=== PATIENT | female | born 1965 | race African-American/Black ===

== ENCOUNTER 2016-04-27 14:41 | Emergency (ER) | payer SELFPAY ==
[~2016-04-27] VITALS: Ht 162.6 cm; Wt 80.0 kg
[2016-04-27 14:43] VITALS: BP 218/107; PULSE 75; RESP 14; TEMP 98.2; O2SAT 98
[2016-04-27 14:48] VITALS: BP 217/112; PULSE 90; RESP 18; TEMP 98.7; O2SAT 99
[2016-04-27] MEDS ORDERED: LISI10TA3 PO ×2 (14:51→15:31)
--- NOTE | 2016-04-27 14:56 | PD ---
HPI Chief Complaint: Hypertension Time Seen by Provider: 14:48 Travel History International Travel<30 days: No Contact w/Intl Traveler<30days: No Traveled to known affect area: No History of Present Illness HPI The patient was seen and examined in the presence of the nurse. This patient complains of elevated blood pressure. She usually takes daily lisinopril but ran out 2 days ago. She recently moved here from [place] and has no physician or medication. Blood pressure is 217 systolic. Denies any chest pain or vision change or significant headache. Severity is mild. No alleviating factors. PFSH Past Medical History Cardiovascular Problems: Yes Social History Alcohol Use: No Tobacco Use: No Substance Use: No Allergies-Medications (Allergen,Severity, Reaction): Coded Allergies: No Known Allergies (Unverified , 04/27/16) Reported Meds & Prescriptions Reported Meds & Active Scripts Active Lisinopril 10 Mg Tab 10 Mg PO DAILY Review of Systems General / Constitutional: No: Fever Eyes: No: Visual changes HENT: No: Headaches Cardiovascular: No: Chest Pain or Discomfort Respiratory: No: Shortness of Breath Gastrointestinal: No: Abdominal Pain Genitourinary: No: Dysuria Musculoskeletal: No: Pain Skin: No Rash Neurologic: No: Weakness Psychiatric: No: Depression Endocrine: No: Polydipsia Hematologic/Lymphatic: No: Easy Bruising Physical Exam Narrative GENERAL: Well-nourished, well-developed patient in no apparent distress. SKIN: Warm and dry. HEAD: Atraumatic. Normocephalic. EYES: Pupils equal and round. No scleral icterus. No injection or drainage. ENT: No nasal bleeding or discharge. Mucous membranes pink and moist. NECK: Trachea midline. No JVD. CARDIOVASCULAR: Regular rate and rhythm. No murmur appreciated. RESPIRATORY: No accessory muscle use. Clear to auscultation. Breath sounds equal bilaterally. GASTROINTESTINAL: Abdomen soft, non-tender, nondistended. Hepatic and splenic margins not palpable. MUSCULOSKELETAL: No obvious deformities. No clubbing. No cyanosis. No edema. NEUROLOGICAL: Awake and alert. No obvious cranial nerve deficits. Motor grossly within normal limits. Normal speech. PSYCHIATRIC: Appropriate mood and affect; insight and judgment normal. Data Data Last Documented VS Vital Signs Date Time Temp Pulse Resp B/P Pulse Ox O2 Delivery O2 Flow Rate FiO2 04/27/16 15:52 80 18 142/94 99 Room Air 04/27/16 14:48 98.7 Orders Clonidine (Catapres) (04/27/16 15:00) MDM Medical Decision Making Medical Screen Exam Complete: Yes Emergency Medical Condition: Yes Medical Record Reviewed: Yes Differential Diagnosis Hypertensive urgency, accelerated hypertension, noncompliance Narrative Course I have reviewed the patient's electronic medical record. Blood pressure is 217 systolic. She is neurologically intact. No indication for imaging at this time. I gave her dose of clonidine Will reassess. Blood pressure this time 147 systolic Have refilled her lisinopril for one month The patient was advised to follow up with their physician and return if they worsen. Check and record blood pressure daily Diagnosis Primary Impression: Accelerated hypertension Additional Instructions: Check and record blood pressure daily The patient was advised to follow up with their physician and return if they worsen. Med/Other Pt SpecificInfo: Prescription(s) given Scripts Lisinopril 10 Mg Tab10 Mg PO DAILY #30 TAB Ref 0 Prov:Baltazar Rosales MD 04/27/16 Disposition: 01 DISCHARGE HOME Condition: Stable Baltazar Rosales MD Apr 27, 2016 14:56
[2016-04-27] MEDS ORDERED: cloNIDine HCL 0.2 MG TAB PO ONE (15:00)
[2016-04-27 15:17] VITALS: BP_SYST 164; BP_SYST 189; BP_DIAS 103; PULSE 78; RESP 18; O2SAT 99
[2016-04-27 15:52] VITALS: BP 142/94; PULSE 80; RESP 18; O2SAT 99
== END 2016-04-27 16:23 | disposition home or self-care (01) ==
LOC: NEPC 14:41
DX: I10 Essential (primary) hypertension (principal)
CPT/HCPCS: 99283

== ENCOUNTER 2016-10-28 09:54 | Observation (INO) | payer SELFPAY ==
[~2016-10-28] VITALS: Ht 154.9 cm; Wt 71.0 kg
[~2016-10-28 09:54] MED LIST: LISI10TA3 PO
[2016-10-28 09:55] VITALS: BP 194/109; PULSE 72; RESP 16; TEMP 98.6; O2SAT 100
[2016-10-28 10:09] VITALS: BP 171/92; PULSE 71; RESP 14; TEMP 98.9; O2SAT 99
[2016-10-28] MEDS ORDERED: SODIUM CHLORIDE 0.9% FLUSH 10 ML FLUSH IVF PRN (10:30)
[2016-10-28 10:41] VITALS: O2SAT 98
--- NOTE | 2016-10-28 10:45 | PD ---
HPI Chief Complaint: Hypertension Time Seen by Provider: 10:28 Travel History International Travel<30 days: No Contact w/Intl Traveler<30days: No Traveled to known affect area: No History of Present Illness HPI 51-year-old female states she has been out of her lisinopril for a week because of insurance reasons. She states yesterday she developed chest pressure which is now resolved. She states she is also been having intermittent headaches but denies any currently. She states she has not taken an aspirin yet today. She denies any prior cardiac workup or issues. She denies any other concurrent complaints. Quality is elevated. Severity is severe per patient. She states she is working on getting a job to get insurance but does not know when this will happen. She states she has not been on other medication for her blood pressure besides lisinopril. PFSH Past Medical History Cardiovascular Problems: Yes (HTN) Hypertension: Yes ?: Not Menopausal: Yes Past Surgical History Section: Yes (x2) Gynecologic Surgery: Yes () Social History Alcohol Use: No Tobacco Use: No Substance Use: No Allergies-Medications (Allergen,Severity, Reaction): Coded Allergies: No Known Allergies (Unverified , 10/28/16) Reported Meds & Prescriptions Reported Meds & Active Scripts Active Lisinopril 10 Mg Tab 10 Mg PO DAILY Review of Systems Except as stated in HPI: all other systems reviewed are Neg Physical Exam Narrative GENERAL: Well-nourished, well-developed patient. SKIN: Warm and dry. HEAD: Normocephalic and atraumatic. EYES: No injection or drainage. ENT: No nasal drainage noted. NECK: Supple, trachea midline. CARDIOVASCULAR: Regular rate and rhythm RESPIRATORY: Breath sounds equal bilaterally. No accessory muscle use. GASTROINTESTINAL: Abdomen soft, non-tender, nondistended. EXTREMITIES: No edema. NEUROLOGICAL: Awake and alert. Motor and sensory grossly within normal limits. Normal speech. Data Data Last Documented VS Vital Signs Date Time Temp Pulse Resp B/P Pulse Ox O2 Delivery O2 Flow Rate FiO2 10/28/16 10:47 171/92 10/28/16 10:41 98 Room Air 10/28/16 10:09 98.9 71 14 Orders Electrocardiogram (10/28/16 10:20) Ckmb (Isoenzyme) Profile (10/28/16 10:20) Complete Blood Count With Diff (10/28/16 10:20) Comprehensive Metabolic Panel (10/28/16 10:20) Magnesium (Mg) (10/28/16 10:20) Prothrombin Time / Inr (Pt) (10/28/16 10:20) Act Partial Throm Time (Ptt) (10/28/16 10:20) Troponin I (10/28/16 10:20) Chest, Single Ap (10/28/16 10:20) Ecg Monitoring (10/28/16 10:20) Bilateral Bp Monitoring (10/28/16 10:20) Iv Access Insert/Monitor (10/28/16 10:20) Oximetry (10/28/16 10:20) Sodium Chloride 0.9% Flush (Ns Flush) (10/28/16 10:30) Ct Brain W/O Iv Contrast(Rout) (10/28/16 ) Aspirin (Aspirin) (10/28/16 12:00) Admit Order (Ed Use Only) (10/28/16 11:55) Labs Laboratory Tests Test 10/28/16 10/28/16 10:30 10:38 White Blood Count 4.0 TH/MM3 Red Blood Count 4.98 MIL/MM3 Hemoglobin 13.3 GM/DL Hematocrit 39.4 % Mean Corpuscular Volume 79.1 FL Mean Corpuscular Hemoglobin 26.7 PG Mean Corpuscular Hemoglobin 33.7 % Concent Red Cell Distribution Width 13.6 % Platelet Count 232 TH/MM3 Mean Platelet Volume 8.4 FL Neutrophils (%) (Auto) 29.2 % Lymphocytes (%) (Auto) 52.2 % Monocytes (%) (Auto) 7.6 % Eosinophils (%) (Auto) 10.2 % Basophils (%) (Auto) 0.8 % Neutrophils # (Auto) 1.2 TH/MM3 Lymphocytes # (Auto) 2.1 TH/MM3 Monocytes # (Auto) 0.3 TH/MM3 Eosinophils # (Auto) 0.4 TH/MM3 Basophils # (Auto) 0.0 TH/MM3 CBC Comment DIFF FINAL Differential Comment Prothrombin Time 11.4 SEC Prothromb Time International 1.0 RATIO Ratio Activated Partial 27.3 SEC Thromboplast Time Sodium Level 140 MEQ/L Potassium Level 3.6 MEQ/L Chloride Level 106 MEQ/L Carbon Dioxide Level 27.7 MEQ/L Anion Gap 6 MEQ/L Blood Urea Nitrogen 10 MG/DL Creatinine 0.62 MG/DL Estimat Glomerular Filtration 124 ML/MIN Rate Random Glucose 91 MG/DL Calcium Level 9.0 MG/DL Magnesium Level 2.2 MG/DL Total Bilirubin 0.6 MG/DL Aspartate Amino Transf 23 U/L (AST/SGOT) Alanine Aminotransferase 20 U/L (ALT/SGPT) Alkaline Phosphatase 97 U/L Total Creatine Kinase 91 U/L Troponin I 0.02 NG/ML Total Protein 8.2 GM/DL Albumin 3.7 GM/DL MDM Medical Decision Making Medical Screen Exam Complete: Yes Emergency Medical Condition: Yes Medical Record Reviewed: Yes (pmh confirmed) Interpretation(s) EKG shows NSR, no ST elevation or depression, and no arrhythmias. No significant T-wave inversions. CBC & BMP Diagram 10/28/16 10:30 10/28/16 10:38 Last 24 hours Impressions Chest X-Ray 10/28/16 1020 Signed Impressions: Service Date/Time: Friday, October 28, 2016 10:32 - CONCLUSION: Normal examination. Edison Rodas MD Head CT 10/28/16 0000 Signed Impressions: Service Date/Time: Friday, October 28, 2016 11:27 - CONCLUSION: No acute intracranial disease. Timothy Mix MD Differential Diagnosis LA, hypertensive urgency, tension, migraine, bili Narrative Course Will check blood work, chest x-ray, EKG, CT brain and monitor ed workup no acute, agrees to records management specialist observation, given aspirin Diagnosis Primary Impression: Chest pain Qualified Code: R07.9 - Chest pain, unspecified type Admitting Information Admitting Physician Requests: Observation Ashtyn Cruz MD Oct 28, 2016 10:45
[2016-10-28 10:47] VITALS: BP_SYST 166; BP_SYST 171; BP_DIAS 87; BP_DIAS 92
[2016-10-28 10:54] LABS: AUTOMATED NEUTROPHIL # 1.2 TH/MM3 (1.8-7.7); BASOPHIL % 0.8 % (0.0-2.0); EOSINOPHIL # 0.4 TH/MM3 (0-0.4); EOSINOPHIL % 10.2 % (0.0-4.0); HEMATOCRIT 39.4 % (35.0-46.0); HEMO FLAGS DIFF FINAL; LYMPH % 52.2 % (9.0-44.0); LYMPHOCYTE # 2.1 TH/MM3 (1.0-4.8); MEAN CELL VOLUME 79.1 FL (80.0-100.0); MEAN CORPUSCULAR HEMOGLOBIN 26.7 PG (27.0-34.0); MEAN CORPUSCULAR HGB CONC 33.7 % (32.0-36.0); MONO % 7.6 % (0.0-8.0); NEUT % 29.2 % (16.0-70.0); PLATELET COUNT 232 TH/MM3 (150-450); RED BLOOD COUNT 4.98 MIL/MM3 (4.00-5.30); RED CELL DISTRIBUTION WIDTH 13.6 % (11.6-17.2)
[2016-10-28 11:10] LABS: APTT (PATIENT) 27.3 SEC (24.3-30.1); PROTHROMBIN TIME - PATIENT 11.4 SEC (9.8-11.6)
--- NOTE | 2016-10-28 11:19 | RADRPT ---
EXAM DATE/TIME: 10/28/2016 10:32 [facility] COMPARISON: No previous studies available for comparison. INDICATIONS : Chest pain. MEDICAL HISTORY : None. SURGICAL HISTORY : None. ENCOUNTER: Initial ACUITY: 1 day PAIN SCORE: 04/22 LOCATION: Bilateral chest FINDINGS: A single view of the chest demonstrates the lungs to be symmetrically aerated without evidence of mas s, infiltrate or effusion. The cardiomediastinal contours are unremarkable. Osseous structures are intact. CONCLUSION: Normal examination. Edison Rodas MD on October 28, 2016 at 11:17 Board Certified Radiologist. This report was verified electronically.
[2016-10-28 11:22] LABS: ALT (GPT) 20 U/L (10-53)
[2016-10-28 11:30] LABS: ALKALINE PHOSPHATASE 97 U/L (45-117); ANION GAP 6 MEQ/L (5-15); AST (GOT) 23 U/L (15-37); BICARBONATE 27.7 MEQ/L (21.0-32.0); BLOOD UREA NITROGEN 10 MG/DL (7-18); CHLORIDE 106 MEQ/L (98-107); CREATINE KINASE 91 U/L (26-192); GLOMERULAR FILTRATION RATE 124 ML/MIN (>89); MAGNESIUM 2.2 MG/DL (1.5-2.5); POTASSIUM 3.6 MEQ/L (3.5-5.1); SODIUM (NA) 140 MEQ/L (136-145); TOTAL BILIRUBIN ADULT 0.6 MG/DL (0.2-1.0)
--- NOTE | 2016-10-28 11:50 | RADRPT ---
EXAM DATE/TIME: 10/28/2016 11:27 [facility] COMPARISON: No previous studies available for comparison. INDICATIONS : Headache RADIATION DOSE: 56.38 CTDIvol (mGy) MEDICAL HISTORY : Hypertension. SURGICAL HISTORY : section. ENCOUNTER: Initial ACUITY: 1 day PAIN SCALE: 5/10 LOCATION: cranial TECHNIQUE: Multiple contiguous axial images were obtained of the head. Using automated exposure control and adj ustment of the mA and/or kV according to patient size, radiation dose was kept as low as reasonably a chievable to obtain optimal diagnostic quality images. DICOM format image data is available electro nically for review and comparison. FINDINGS: CEREBRUM: The ventricles are normal for age. No evidence of midline shift, mass lesion, hemorrhage or acute in farction. No extra-axial fluid collections are seen. POSTERIOR FOSSA: The cerebellum and brainstem are intact. The 4th ventricle is midline. The cerebellopontine angle i s unremarkable. EXTRACRANIAL: The visualized portion of the orbits is intact. SKULL: The calvaria is intact. No evidence of skull fracture. CONCLUSION: No acute intracranial disease. Timothy Mix MD on October 28, 2016 at 11:37 Board Certified Radiologist. This report was verified electronically.
[2016-10-28] MEDS ORDERED: ASPIRIN 325 MG TAB PO ONE (12:00)
[2016-10-28] MEDS ORDERED: ONDANSETRON HCL 4 MG/2 ML VIAL IV PRN (12:45)
[2016-10-28] MEDS ORDERED: LISINOPRIL 10 MG TAB PO SCH (12:45)
[2016-10-28] MEDS ORDERED: ACETAMINOPHEN/HYDROcodone 325 MG/7.5 MG TAB PO PRN (12:45)
[2016-10-28] MEDS ORDERED: ACETAMINOPHEN 500 MG CPLT PO PRN (12:45)
[2016-10-28] MEDS ORDERED: SODIUM CHLORIDE 0.9% FLUSH 5 ML FLUSH IVF PRN (12:45)
--- NOTE | 2016-10-28 13:47 | HHI.HP ---
HPI Primary Care Physician No Primary Care Physician Chief Complaint Chest pain and hypertension History of Present Illness This is a 51-year-old female that presents to ED via private vehicle with primary complaint of hypertension and is requesting refill of her lisinopril. She ran out a week ago. States she has no insurance her local primary care physician to prescribe this. She also states that she woke up with a headache and checked her blood pressure and decided to come to the ED when noticing her blood pressure had still been elevated. Yesterday while at home watching television she developed a heaviness in the side of her chest to last about 3 hours. No associated shortness breath, nausea, or diaphoresis. She checked her blood pressure the same time and her blood pressure was 157/124. Denies history of heart disease. Believes she had a stress test 5 or 6 years ago that was okay. Denies recent illness. Denies fevers or chills. States that her blood. His control when she takes lisinopril. Review of Systems General: Patient denies fevers, chills recent, and recent travel. HEENT: Patient denies headache, sore throat, difficulty swallowing. Cardiovascular: Has the chest discomfort as mentioned above. Denies sensation of heart beating rapidly or irregularly. No syncope. Denies diaphoresis. Respiratory: Denies shortness of breath or inspirational chest discomfort. Denies coughing wheezing or hemoptysis. GI: Patient denies nausea, vomiting, diarrhea, abdominal pain, bloody stools. Musculoskeletal: Patient denies joint pain or edema. Denies calf pain or edema. Neurovascular: Patient denies numbness, tingling, weakness in extremities. She had a headache earlier this morning but has since resolved. Endocrine: Denies polyuria and polydipsia. Hematologic: Denies easy bruising. Skin: Denies rash or itching. Past Family Social History Allergies: Coded Allergies: No Known Allergies (Unverified , 10/28/16) Past Medical History Hypertension. Denies hyperlipidemia, diabetes, and known CAD. Past Surgical History . Reported Medications Reported Meds & Active Scripts Active Lisinopril 10 Mg Tab 10 Mg PO DAILY Active Ordered Medications Current Medications Medications (Trade) Dose Ordered Sig/Thais Route Start Time Stop Time Status Last Admin (NS Flush) 2 ml UNSCH PRN IVF 10/28/16 12:45 (NS Flush) 2 ml BID IVF 10/28/16 21:00 (Tylenol) 500 mg Q4H PRN PO 10/28/16 12:45 ([place] 7.5-325 Mg) 1 tab Q4H PRN PO 10/28/16 12:45 (Zofran Inj) 4 mg Q6H PRN IV 10/28/16 12:45 (Prinivil) 10 mg DAILY PO 10/28/16 12:45 (Aspirin) 325 mg DAILY PO 10/29/16 09:00 Family History Her father at age 65 of a myocardial infarction. Her brother passed age 33 of a myocardial infarction. Social History Patient is a lifetime nonsmoker. Has occasional alcohol. Denies illicit drugs. Physical Exam Vital Signs Vital Signs Date Time Temp Pulse Resp B/P Pulse Ox O2 Delivery O2 Flow Rate FiO2 10/28/16 10:47 171/92 10/28/16 10:47 166/87 10/28/16 10:41 98 Room Air 10/28/16 10:09 98.9 71 14 171/92 99 Room Air 10/28/16 09:55 98.6 72 16 194/109 100 Room Air Physical Exam GENERAL: This is a well-nourished, well-developed patient, in no apparent distress. Patient speaks in clear complete sentences. Patient is pleasant. HEENT: Head is atraumatic and normocephalic. Neck is supple without lymphadenopathy and trachea is midline. No JVD or carotid bruits. CARDIOVASCULAR: Regular rate and rhythm without murmurs, gallops, or rubs. RESPIRATORY: Clear to auscultation. Breath sounds equal bilaterally. No wheezes , rales, or rhonchi. Chest wall is nontender. No use of accessory muscles. GASTROINTESTINAL: Abdomen is nontender, nondistended. Abdomen soft. No obvious pulsatile mass or bruit. No CVA tenderness. Strong femoral pulses bilaterally. Normal bowel sounds in all quadrants. MUSCULOSKELETAL: Patient is moving upper and lower extremities freely. No calf tenderness or edema, no Homans sign. Strong pulses in upper and lower extremities. NEUROLOGICAL: Patient is alert and oriented. Cranial nerves 2-12 are grossly intact. No focal deficits and speech is clear. SKIN: No rash and turgor is normal. Laboratory Laboratory Tests Test 10/28/16 10/28/16 10:30 10:38 White Blood Count 4.0 Red Blood Count 4.98 Hemoglobin 13.3 Hematocrit 39.4 Mean Corpuscular Volume 79.1 Mean Corpuscular Hemoglobin 26.7 Mean Corpuscular Hemoglobin 33.7 Concent Red Cell Distribution Width 13.6 Platelet Count 232 Mean Platelet Volume 8.4 Neutrophils (%) (Auto) 29.2 Lymphocytes (%) (Auto) 52.2 Monocytes (%) (Auto) 7.6 Eosinophils (%) (Auto) 10.2 Basophils (%) (Auto) 0.8 Neutrophils # (Auto) 1.2 Lymphocytes # (Auto) 2.1 Monocytes # (Auto) 0.3 Eosinophils # (Auto) 0.4 Basophils # (Auto) 0.0 CBC Comment DIFF FINAL Differential Comment Prothrombin Time 11.4 Prothromb Time International 1.0 Ratio Activated Partial 27.3 Thromboplast Time Sodium Level 140 Potassium Level 3.6 Chloride Level 106 Carbon Dioxide Level 27.7 Anion Gap 6 Blood Urea Nitrogen 10 Creatinine 0.62 Estimat Glomerular Filtration 124 Rate Random Glucose 91 Calcium Level 9.0 Magnesium Level 2.2 Total Bilirubin 0.6 Aspartate Amino Transf 23 (AST/SGOT) Alanine Aminotransferase 20 (ALT/SGPT) Alkaline Phosphatase 97 Total Creatine Kinase 91 Troponin I 0.02 Total Protein 8.2 Albumin 3.7 Result Diagram: 10/28/16 1030 10/28/16 1038 Imaging Last 48 hours Impressions Chest X-Ray 10/28/16 1020 Signed Impressions: Service Date/Time: Friday, October 28, 2016 10:32 - CONCLUSION: Normal examination. Edison Rodas MD Head CT 10/28/16 0000 Signed Impressions: Service Date/Time: Friday, October 28, 2016 11:27 - CONCLUSION: No acute intracranial disease. Timothy Mix MD Course Initial EKG has sinus rhythm without significant ST segment depressions or elevations. Assessment and Plan Assessment and Plan * Chest pain: Patient will continue to have serial cardiac enzymes and EKGs for ruling out purposes and will be seen by Dr. Pool cardiology in the chest and center. She will likely undergo a Dylon protocol ETT and be discharged if stress test is nonischemic with instructions to follow-up with primary care physician. * Hypertension: We'll restart lisinopril. Patient is stable at this time. She is agreeable to this plan. Martinez Galarza Oct 28, 2016 13:47
[2016-10-28 14:29] LABS: CREATINE KINASE 81 U/L (26-192)
--- NOTE | 2016-10-28 16:05 | TR ---
Date Performed: 10/28/2016 Time Performed: 15:23:49 DOCTOR: Lashon Pool DRUG LIST: CLINICAL HISTORY: REASON FOR TEST: Chest pain REASON FOR ENDING: OBSERVATION: CONCLUSION: YUNI PROTOCOL. NO CP. TEST STOPPED AFTER EXCEEDING GOAL HR SECONDARY TO SOB AND LEG FATIGUE.Maximum WR=986 % Max HR Achieved=95.0% Maximum SF=146/84 Total Exercise Time=6:31 COMMENTS:
[2016-10-28 16:21] VITALS: BP 134/86; PULSE 65; RESP 15; TEMP 97.7; O2SAT 96
--- NOTE | 2016-10-28 16:57 | EKG ---
Date Performed: 10/28/2016 Time Performed: 13:49:41 PTAGE: 51 years EKG: SINUS BRADYCARDIA POSSIBLE LEFT ATRIAL ENLARGEMENT BORDERLINE ECG Since PREVIOUS TRACING , no significant change noted PREVIOUS TRACIN10/28/2016 10.46 DOCTOR: Lashon Pool Interpretating Date/Time 10/28/2016 16:57:01
--- NOTE | 2016-10-28 16:58 | EKG ---
Date Performed: 10/28/2016 Time Performed: 10:46:03 PTAGE: 51 years EKG: Sinus rhythm NORMAL ECG NO PREVIOUS TRACING DOCTOR: Lashon Pool Interpretating Date/Time 10/28/2016 16:57:55
[2016-10-28] MEDS ORDERED: AMLO5TAB2 PO (16:59)
--- NOTE | 2016-10-28 17:00 | HHI.DCPOC ---
Discharge Care Plan Diagnosis: (1) Chest pain (2) Hypertension Goals to Promote Your Health * To prevent worsening of your condition and complications * To maintain your health at the optimal level Directions to Meet Your Goals Take your medications as prescribed Follow your dietary instruction Follow activity as directed Keep your appointments as scheduled Take your immunizations and boosters as scheduled If your symptoms worsen call your PCP, if no PCP go to Urgent Care Center or Emergency Room Smoking is Dangerous to Your Health. Avoid second hand smoke Call the 24-hour hour crisis hotline for domestic abuse at Martinez Galarza Oct 28, 2016 17:00
[2016-10-28 19:20] VITALS: O2SAT 96
[2016-10-28] MEDS ORDERED: SODIUM CHLORIDE 0.9% FLUSH 5 ML FLUSH IVF SCH (21:00)
[2016-10-29] MEDS ORDERED: ASPIRIN 325 MG TAB PO SCH (09:00)
== END 2016-10-28 19:46 | disposition home or self-care (01) ==
LOC: NEPC 09:54 → NEDA 11:57 → NEPHCDU 13:20
PROVIDERS: ADMIT Internal Medicine Interventional Cardiology; ATTEND Internal Medicine Interventional Cardiology
DX: R07.9 Chest pain, unspecified (principal); I10 Essential (primary) hypertension; R00.1 Bradycardia, unspecified; Z79.899 Other long term (current) drug therapy
CPT/HCPCS: 70450; 71010; 80053; 82550; 83735; 84484; 85025; 85610; 85730; 93005; 93017; 99285; G0378